=== PATIENT | female | born 1965 | race Caucasian/White ===

== ENCOUNTER 2018-10-08 21:22 | Emergency (ER) | payer OTHER | END 2018-10-08 23:03 | disposition home or self-care (01) | LOC: JERFT 21:22 ==

== ENCOUNTER 2018-10-10 21:02 | Emergency (ER) | payer OTHER ==
[2018-10-10 21:15] VITALS: BP 104/67; PULSE 69; TEMP 97.9; BMI 29.0
--- NOTE | 2018-10-10 21:18 | PDOC ---
Rapid Medical Evaluation Chief Complaint: Pain Time Seen by Provider: 10/10/18 21:13 Medical Evaluation: Allergies Allergy/AdvReac Type Severity Reaction Status Date / Time No Known Allergies Allergy Verified 10/08/18 21:30 10/10/18 21:14 I have performed a brief in-person evaluation of this patient. The patient presents with a chief complaint of: Right foot pain Pertinent physical exam findings: previously splinted foot from byrne fracture I have ordered the following: ice The patient will proceed to the ED for further evaluation. 10/10/18 21:17 Discharge Disposition - Diagnosis Fracture of 5th metatarsal - Referrals - Patient Instructions - Post Discharge Activity
[2018-10-10] MEDS ORDERED: KETOROLAC TROMETHAMINE 60 MG/2 ML VIAL IM ONE (21:41)
--- NOTE | 2018-10-10 21:41 | PDOC ---
History of Present Illness - General Chief Complaint: Pain Stated Complaint: RIGHT LEG PAIN Time Seen by Provider: 10/10/18 21:13 - History of Present Illness Initial Comments: 10/10/18 22:14 CHIEF COMPLAINT: right foot pain HISTORY OF PRESENT ILLNESS: 53 yo F recently diagnosed with a Lin' fracture to R foot returns to ED today with R foot pain. Patient states she is concerned because the bandage has become loose and her foot still hurts. Patient has not followed up with ortho because today is a holiday. Patient reports she has been taking Tylenol "morning, afternoon, and evening." However patient was ambulatory on arrival to ED despite having been discharged with crutches two days ago. Patient denies that she has been bearing weight on her right food. No recent travel or sick contacts. PAST MEDICAL HISTORY: Denies past medical history FAMILY HISTORY: Denies SOCIAL HISTORY: \\ Denies tobacco, alcohol, illicit drug use. SURGICAL HISTORY: Denies ALLERGIES: No known drug allergies REVIEW OF SYSTEMS General/Constitutional: Denies fever or chills. Denies weakness, weight change. HEENT: Denies change in vision. Denies ear pain or discharge. Denies sore throat. Cardiovascular: Denies chest pain or shortness of breath. Respiratory: Denies cough, wheezing, or hemoptysis. Gastrointestinal: Denies nausea, vomiting, diarrhea or constipation. Denies rectal bleeding. Genitourinary: Denies dysuria, frequency, or change in urination. Musculoskeletal: R foot pain. Skin and breasts: Denies rash or easy bruising. PHYSICAL EXAM General Appearance: Well-appearing, appropriately dressed. No apparent distress , no intoxication. HEENT: EOMI, PERRLA, normal ENT inspection, normal voice, TMs normal, pharynx normal. No conjunctival pallor. No photophobia, scleral icterus. Neck: Supple. Trachea midline. No tenderness, rigidity, carotid bruit, stridor , lymphadenopathy, or thyromegaly. Respiratory/Chest: Lungs CTAB. No shortness of breath, chest tenderness, respiratory distress, accessory muscle use. No crackles, rales, rhonchi, stridor , wheezing, dullness Cardiovascular: RRR. S1, S2. No JVD, murmur, bradycardia, tachycardia. Vascular Pulses: Dorsalis-Pedis (R): 2+, Dorsalis-Pedis (L): 2+ Gastrointestinal/Abdominal: Normal bowel sounds. Abdomen soft, non-distended. No tenderness or rebound tenderness. No organomegaly, pulsatile mass, guarding , hernia, hepatomegaly, splenomegaly. Lymphatic: No adenopathy, tenderness. Musculoskeletal/Extremities: Orthoglass splint to R foot. Normal inspection. FROM of all extremities, normal capillary refill. Pelvis Stable. No CVA tenderness. No tenderness to extremities, pedal edema, swelling, erythema or deformity. Integumentary: Appropriate color, dry, warm. No cyanosis, erythema, jaundice or rash Neurologic: mamma logist II-XII intact. Fully oriented, alert. Appropriate mood/affect. Motor strength 5/5. No appreciable EOM palsy, facial droop or sensory deficit. Past History - Past Medical History Allergies/Adverse Reactions: Allergies Allergy/AdvReac Type Severity Reaction Status Date / Time No Known Allergies Allergy Verified 10/08/18 21:30 Home Medications: Ambulatory Orders Acetaminophen [Tylenol -] 500 mg PO Q4H 10/08/18 Ibuprofen 600 mg PO QID #30 tablet 10/10/18 Anemia: No Asthma: No Cancer: No Cardiac Disorders: No CVA: No COPD: No - Suicide/Smoking/Psychosocial Hx Smoking History: Never smoked Have you smoked in the past 12 months: No Number of Cigarettes Smoked Daily: 7 Hx Alcohol Use: No Drug/Substance Use Hx: No *Physical Exam - Vital Signs Last Vital Signs Temp Pulse Resp BP Pulse Ox 97.9 F 69 20 104/67 100 10/10/18 21:11 10/10/18 21:11 10/10/18 21:11 10/10/18 21:11 10/10/18 21:11 Medical Decision Making - Medical Decision Making 10/10/18 22:16 53 yo F recently diagnosed with a Lin' fracture to R foot returns to ED today with R foot pain. -Toradol -Motrin rx sent to pharm as patient requests "a prescription Motrin" Advised patien to f/u with ortho this week; patient states she does plan to f/u tomorrow. *DC/Admit/Observation/Transfer Diagnosis at time of Disposition: Fracture of 5th metatarsal Qualifiers: Encounter type: sequela Fracture type: closed Fracture alignment: nondisplaced Laterality: right Qualified Code(s): S92.354S - Nondisplaced fracture of fifth metatarsal bone, right foot, sequela - Discharge Dispostion Disposition: HOME Condition at time of disposition: Stable Decision to Admit order: No - Prescriptions Prescriptions: Ibuprofen 600 mg PO QID #30 tablet - Referrals Referrals: Charles Garcia DO [Staff Physician] - - Patient Instructions Printed Discharge Instructions: Foot Fracture Additional Instructions: Please take medication as prescribed. Follow up with orthopedics this weeks for further management of your foot fracture. If you develop any new or worsening symptoms, please return to the ER. - Post Discharge Activity
[2018-10-10] MEDS ORDERED: KETOROLAC TROMETHAMINE 60 MG/2 ML VIAL ONE (22:24)
== END 2018-10-10 23:45 | disposition home or self-care (01) ==
LOC: JER 21:02
PROC: 3E0233Z Introduction of Anti-inflammatory into Muscle, Percutaneous Approach (ICD-10-PCS; principal; 2018-10-10)
DX: S92.354D Nondisplaced fracture of fifth metatarsal bone, right foot, subsequent encounter for fracture with routine healing (principal); W18.39XD Other fall on same level, subsequent encounter
CPT/HCPCS: 96372; 99281-25

== ENCOUNTER 2020-12-10 11:32 | Emergency (ER) | payer OTHER ==
[2020-12-10 11:40] VITALS: TEMP 98.3; BMI 36.8
[2020-12-10] MEDS ORDERED: SODIUM CHLORIDE 0.9% 500 ML INFUS.BAG IV ONE (12:39)
[2020-12-10] MEDS ORDERED: ACETAMINOPHEN 1000 MG/100 ML VIAL (NON FORMULARY) IVPB ONE (12:39)
[2020-12-10] MEDS ORDERED: morphine CARPU-JECT 2 MG/1 ML DISP.SYRIN IVPUSH ONE ×2 (12:39→15:04)
[2020-12-10] MEDS ORDERED: MORPHINE SULFATE 2 MG/ML VIAL ONE ×2 (13:33→15:25)
[2020-12-10] MEDS ORDERED: ACETAMINOPHEN INJECTION 100 ML IVPB ONE (13:33)
[2020-12-10 13:44] LABS: PH,URINE 6.5 (5.0-8.0); URINE APPEARANCE CLEAR; URINE BILIRUBIN NEGATIVE (NEGATIVE); URINE COLOR YELLOW; URINE GLUCOSE (UA) NEGATIVE (NEGATIVE); URINE KETONE NEGATIVE (NEGATIVE); URINE LEUK ESTERASE NEGATIVE (NEGATIVE); URINE NITRITE NEGATIVE (NEGATIVE); URINE PROTEIN NEGATIVE (NEGATIVE)
[2020-12-10 13:45] LABS: BASO % 0.8 % (0-2.0); EOS % 1.8 % (0-4.5); HEMATOCRIT 43.2 % (32.4-45.2); HEMOGLOBIN 14.7 GM/dL (10.7-15.3); LYMPH % 33.7 % (8-40); MCH 30.8 pg (25.7-33.7); MEAN CELL VOLUME 90.6 fl (80-96); MEAN PLT VOLUME 9.9 fl (7.5-11.1); NEUT % 54.7 % (42.8-82.8); PLATELET COUNT 233 10^3/uL (134-434); RBC 4.77 M/mm3 (3.60-5.2); RDW 13.3 % (11.6-15.6); WHITE BLOOD COUNT 6.8 K/mm3 (4.0-10.0)
[2020-12-10 14:10] LABS: BLOOD UREA NITROGEN 15.4 mg/dL (7-18); CALCIUM 9.3 mg/dL (8.5-10.1)
[2020-12-10 14:11] LABS: ALBUMIN 4.3 g/dl (3.4-5.0)
[2020-12-10 14:14] LABS: CREATININE 0.8 mg/dL (0.55-1.3)
[2020-12-10 14:15] LABS: BILIRUBIN,TOTAL 0.4 mg/dL (0.2-1)
[2020-12-10 14:16] LABS: TOT PROT 7.8 g/dl (6.4-8.2)
[2020-12-10] MEDS ORDERED: LORazepam 2 MG/ML SDV VIAL IVPUSH ONE ×2 (17:21→20:51)
[2020-12-10 17:42] VITALS: BP 146/87; PULSE 72
== END 2020-12-10 21:49 | disposition home or self-care (01) ==
LOC: JER 11:32
PROC: 3E0333Z Introduction of Anti-inflammatory into Peripheral Vein, Percutaneous Approach (ICD-10-PCS; principal; 2020-12-10)
PROC: 3E033NZ Introduction of Analgesics, Hypnotics, Sedatives into Peripheral Vein, Percutaneous Approach (ICD-10-PCS; 2020-12-10)
PROC: 3E033NZ Introduction of Analgesics, Hypnotics, Sedatives into Peripheral Vein, Percutaneous Approach (ICD-10-PCS; 2020-12-10)
DX: K57.90 Diverticulosis of intestine, part unspecified, without perforation or abscess without bleeding (principal)
CPT/HCPCS: 36415; 74177-TC; 76830-TC; 80053; 81003; 83690; 85025; 87086; 99285-25; J0131; Q9967